=== PATIENT | male | born 1990 | race Caucasian/White ===

== ENCOUNTER → 2020-08-10 16:14 | Outpatient (CLI) | payer BC, SELFPAY ==
--- NOTE | 2020-08-10 16:26 | XR_ITS ---
PROCEDURE: XR MULTIPLE SPINE 6+V CLINICAL INDICATION: MECHANICAL LOW BACK PAIN Chronic mid to low back pain COMPARISON: No exams were available for comparison FINDINGS: AP and lateral views of the thoracic spine show normal alignment with no fracture or dislocation. There is mild multilevel degenerative changes in the lower thoracic spine. AP lateral and oblique views of the lumbar spine show mild degenerative disc disease at L5-S1. No fracture or dislocation. No lytic or blastic change. IMPRESSION: Mild degenerative changes of the thoracic and lumbar spine with no acute finding Dictated by: Cipriano Burnham MD 08/11/2020 05:37 Cipriano Burnham MD in [place] 08/11/2020 05:37
[2020-08-10 17:37] LABS: Basophils % 0.3 % (0.1-2.0); Eosinophils # 0.2 K/mm3 (0.0-0.4); Eosinophils % 1.8 % (0.1-12.0); Hematocrit 51.7 % (42.0-52.0); Hemoglobin 17.3 g/dL (14.1-18.0); Lymphocytes # 2.4 K/mm3 (0.7-4.5); Mean Corpuscular HGB Conc 33.5 g/dL (31.8-35.4); Mean Corpuscular Hemoglobin 32.4 pg (27.0-31.2); Mean Corpuscular Volume 96.7 fl (80-94); Mean Platelet Volume 7.9 fl (7.4-10.4); Monocytes # 0.6 K/mm3 (0.1-1.0); Monocytes % 6.1 % (1.7-9.3); Neutrophils # 7.2 K/mm3 (1.8-7.8); Neutrophils % 68.8 % (37.0-80.0); Platelet Count 301 K/mm3 (142-424); Red Blood Count 5.34 M/mm3 (4.60-6.20); Red Cell Distribution Width 13.8 % (11.5-17.5); White Blood Count 10.5 K/mm3 (4.8-10.8)
[2020-08-10 18:15] LABS: Chloride 105 mmol/L (98-107); Sodium 139 mmol/L (136-145)
[2020-08-10 18:16] LABS: Potassium 4.3 mmoL/L (3.5-5.1)
[2020-08-10 18:18] LABS: Alanine Aminotransferase 247 U/L (12-78); Albumin Level 4.1 g/dl (3.5-5.0); Albumin/Globulin Ratio 1.3 (1.1-1.8); Alkaline Phosphatase 68 U/L (38-126); Anion Gap 8.3 mEq/L (5-15); Aspartate Amino Transferase 115 U/L (17-59); Bilirubin,Total 0.9 mg/dl (0.2-1.3); Blood Urea Nitrogen 10 mg/dl (9-20); Carbon Dioxide 30 mmol/L (22.0-30.0); Cholesterol 173 mg/dl (140-200); Estimated Glomerular Filt Rate 99 ml/min (>60); GFR (African American) 120 ML/MIN (>60); Globulin 3.1 g/dL (1.3-3.2); Hemoglobin A1C 5.1 % (4.0-6.0); Total Protein,Serum 7.2 g/dl (6.3-8.2); Triglycerides 185 mg/dl (30-150); VLDL Cholesterol 37 mg/dL (0-40)
[2020-08-10 18:19] LABS: Calcium 9.9 mg/dl (8.4-10.2); Glucose 123 mg/dl (74-100)
[2020-08-10 18:30] LABS: Direct LDL Cholesterol 90.29 mg/dL (100-129)
[2020-08-10 20:45] LABS: Chol/HDL Ratio 3.4 (1-3.5); HDL Cholesterol 51 mg/dl (40-60)
== END ==
PROVIDERS: PCP Internal Medicine Adolescent Medicine; Visit Provider Internal Medicine Adolescent Medicine
DX: Z00.00 Encounter for general adult medical examination without abnormal findings (principal); Z83.3 Family history of diabetes mellitus; M54.5 Low back pain
CPT/HCPCS: 36415; 72084; 80053; 80061; 83036; 85025

== ENCOUNTER 2021-04-18 18:38 | Emergency (ER) | payer BC, SELFPAY ==
[2021-04-18 19:10] VITALS: BP 132/81; PULSE 124; RESP 24; TEMP 39; O2SAT 98; BMI 23.7
[2021-04-18 20:04] LABS: Adenovirus,PCR Not Detected (NotDetected); Bordetella Pertussis Not Detected (NotDetected); Chlamydophila Pneumoniae, PCR Not Detected (NotDetected); Coronavirus 19, PCR Not Detected (NotDetected); Coronavirus 229E Not Detected (NotDetected); Coronavirus NL63 Not Detected (NotDetected); Coronavirus OC43 Not Detected (NotDetected); Coronovirus HKU1,PCR Not Detected (NotDetected); Human Metapneumovirus Not Detected (NotDetected); Influenza A, PCR Not Detected (NotDetected); Influenza AH1, 2009 Not Detected (NotDetected); Influenza AH1, PCR Not Detected (NotDetected); Influenza AH3,PCR Not Detected (NotDetected); Influenza B, PCR Not Detected (NotDetected); Mycoplasma Pneumoniae, PCR Not Detected (NotDetected); Parainfluenza 1, PCR Not Detected (NotDetected); Parainfluenza 2, PCR Not Detected (NotDetected); Parainfluenza 3, PCR Not Detected (NotDetected); Parainfluenza 4, PCR Not Detected (NotDetected); Respiratory Syncytial Virus Not Detected (NotDetected); Rhinovirus/Enterovirus Not Detected (NotDetected)
[2021-04-18 20:05] LABS: Color,Urine Dark Yellow (Yellow)
[2021-04-18 20:06] LABS: Apearance,Urine Clear (Clear); Bilirubin,Urine Negative (Negative); Blood, Urine 2+ (Negative); Glucose,Urine (UA) Negative (Negative); Ketones,Urine Negative (Negative); PH,Urine 5.5 (5.0-8.5); Protein,Urine 1+ (Negative); UTC Leukocyte Esterase,Urine 1+ (Negative); UTC Nitrate,Urine Positive (Negative); Urobilinogen,Urine 2 EU/dl (0.2)
--- NOTE | 2021-04-18 20:27 | HMH.EDUTC ---
[facility] [place] Disposition Clinical Impression: Back spasm Urinary tract infection Qualifiers: Urinary tract infection type: site unspecified Hematuria presence: with hematuria Qualified Code(s): N39.0 - Urinary tract infection, site not specified Disposition: Home, Self-Care Condition on Discharge: Good Instructions: Urinary Tract Infection, DI for Urinary Tract Infection (UTI) Additional Instructions: *Increase fluids. Water not Soda or Tea *Start antibiotic immediately and be sure to take as ordered for the FULL length of time although you should start to see improvement over the next 48 hours *Be SURE to follow up anytime for new or worsening symptoms with your family doctor. AND in 48 hours for urine culture results with your family doctor, if you do not have a doctor then you may call back to the [facility] for urine culture results and further treatment. We do recommend that you choose and establish care with a Primary Care Physician. AND follow up with them in 10-14 days to repeat UA to ensure infection is resolved and blood no longer present *Be sure to let your PCP know that we sent urine cultures from the [facility] so they can follow up to ensure that you area the on the correct antibiotic Call your doctor office and make appointment for 48 hours (2 days from today) to follow up and get the results of your urine culture and further treatment Tale medication as prescribed Return if needed Follow up with your Family Doctor if no improvement or any worsening of symptoms Straight to ER if any life threatening symptoms Warm compresses may help with pain Prescriptions: Ketorolac Tromethamine [Toradol 10mg tablet] 10 mg PO Q6HP PRN #8 tab MDD 40mg/day PRN Reason: Moderate Pain Transmission Status: Pending to [id number] Sulfamethoxazole/Trimethoprim [Bactrim DS tablet] 1 each PO BID 10 Days #20 tab Transmission Status: Pending to [id number] Referrals: Henry Duenas MD [Primary Care Provider] - As needed Arvin Smith MD [Staff Physician] - Time of Disposition: 20:47 Medical Decision Making - Te Inquiry Pt receiving controlled substance: No Te was queried for this patient: No Vital Signs: 04/18/21 19:10 04/18/21 20:37 Temperature 102.2 F H 101.0 F H Temperature Source Oral Pulse Rate 124 H Pulse Rate [Left Brachial] 124 H Respiratory Rate 24 24 Blood Pressure 132/81 Blood Pressure [Left Arm] 132/81 Blood Pressure Mean [Left Arm] 98 Blood Pressure Source [Left Arm] Automatic Cuff Blood Pressure Position [Left Arm] Sitting 02 Sat by Pulse Oximetry 98 Oxygen Delivery Method Room Air - Lab Data Lab results reviewed: Yes: I reviewed the patient's lab results. Lab Results 04/18/21 19:33: Urine Color Dark yellow, Urine Appearance Clear, Urine pH 5.5, Ur Specific [place] 1.020, Urine Protein 1+, Urine Glucose (UA) Negative, Urine Ketones Negative, Urine Blood 2+, Urine Nitrate Positive A, Urine Bilirubin Negative, Urine Urobilinogen 2, Ur Leukocyte Esterase 1+ A Orders (Tests/Meds): ED MEDICATIONS Discontinued Medications Generic Name Dose Route Start Last Admin Trade Name Ge PRN Reason Stop Dose Admin Acetaminophen 650 mg 04/18/21 20:29 04/18/21 20:34 Acetaminophen 325mg Tab PO 04/18/21 20:30 650 mg ONCE ONE Administration Ceftriaxone Sodium 1 gm 04/18/21 20:29 04/18/21 20:36 Ceftriaxone 1gm Vial IM 04/18/21 20:30 1 gm ONCE ONE Administration Ketorolac Tromethamine 60 mg 04/18/21 19:32 04/18/21 19:35 Ketorolac 60mg/2ml Vial IM 04/18/21 19:33 60 mg ONCE ONE Administration Lidocaine HCl 0 ml 04/18/21 20:29 04/18/21 20:36 Lidocaine 1% 5ml Pf Vial IM 04/18/21 20:30 2.1 ml ONCE ONE Administration ORDERS Category Date Time Status Full Resp Panel w/COVID ([facility]) Routine Lab 04/18/21 19:41 Received Urine Culture Stat Micro 04/18/21 20:09 Received Medical Decision Narrative: After UA complete spoke with patient soto
[2021-04-18 20:37] VITALS: BP 132/81; PULSE 124; RESP 24; TEMP 38.3; O2SAT 98
[2021-04-18 20:48] VITALS: PULSE 110; TEMP 37.6
== END 2021-04-18 20:53 | disposition home or self-care (01) ==
PROVIDERS: Emergency Provider Nurse Practitioner; PCP Internal Medicine Adolescent Medicine
DX: M62.830 Muscle spasm of back (principal); N39.0 Urinary tract infection, site not specified
CPT/HCPCS: 81003; 87086; 87088; 87186; 87581; 87632; 87798; 96372; 99203; C9803; G0463; U0003; U0005